=== PATIENT | male | born 1960 | race Caucasian/White ===

== ENCOUNTER 2023-09-01 20:00 | Emergency (ER) | payer OTHER ==
[~2023-09-01] VITALS: Ht 167.6 cm; Wt 86.2 kg
[2023-09-01] MEDS ORDERED: IBUP-1955 PO (21:30)
[2023-09-01 21:33] VITALS: BP 149/98; TEMP 208.4; O2SAT 100
== END 2023-09-01 21:34 | disposition home or self-care (01) ==
LOC: ER 20:34
DX: S86.911A Strain of unspecified muscle(s) and tendon(s) at lower leg level, right leg, initial encounter (principal); I10 Essential (primary) hypertension; X50.1XXA Overexertion from prolonged static or awkward postures, initial encounter; Y93.89 Activity, other specified; Y92.89 Other specified places as the place of occurrence of the external cause; Y99.8 Other external cause status
CPT/HCPCS: A4606; A4663

== ENCOUNTER 2024-03-23 18:59 | Emergency (ER) | payer OTHER ==
[~2024-03-23] VITALS: Ht 167.6 cm; Wt 90.7 kg
[~2024-03-23 18:59] MED LIST: IBUP-1955 PO
[2024-03-23] MEDS: IV NORMAL SALINE 1000 ML BAG IV ONE (19:30)
[2024-03-23 19:48] LABS: BASOPHILS # (AUTO) 0.1 K/UL (0.0-0.2); BASOPHILS % (AUTO) 0.6 % (0.0-2.0); EOSINOPHILS % (AUTO) 0.1 % (0.0-7.0); HEMOGLOBIN 18.7 g/dL (12.5-16.3); LYMPHOCYTES # (AUTO) 1.8 K/uL (0.8-4.8); LYMPHOCYTES % (AUTO) 18.2 % (20.5-51.5); MEAN CORPUSCULAR HEMOGLOBIN 30.8 uug (23.8-33.4); MEAN CORPUSCULAR HGB CONC 35 g/dL (32.5-36.3); MEAN CORPUSCULAR VOLUME 87.3 fL (73.0-96.2); MONOCYTES # (AUTO) 0.7 K/uL (0.1-1.30); MONOCYTES % (AUTO) 7.3 % (0.0-11.0); NEUTROPHILS # (AUTO) 7.2 K/uL (1.8-8.9); NEUTROPHILS % (AUTO) 73.8 % (38.5-71.5); PLATELET COUNT (AUTO) 247 K/uL (152-348); RED BLOOD CELL COUNT(AUTO) 6.06 MIL/uL (4.06-5.63); RED CELL DISTRIBUTION WIDTH 13.6 % (12.1-16.2); WHITE BLOOD COUNT (AUTO) 9.8 K/uL (3.6-10.2)
[2024-03-23 19:59] LABS: CALCIUM 9.6 mg/dL (8.5-10.1); CARBON DIOXIDE 27 mmol/L (21-32); CHLORIDE 102 mmol/L (98-107); CREATININE 1.3 mg/dL (0.6-1.3); GLUCOSE 135 mg/dL (74-106); SODIUM SERUM 139 mmol/L (136-145); UREA NITROGEN, BLOOD 15 mg/dL (7-18)
[2024-03-23 20:05] LABS: POTASSIUM 4.2 mmol/L (3.5-5.1)
[2024-03-23 20:07] LABS: DIFFERENTIAL COMMENT 1
[2024-03-23 20:11] LABS: ALANINE AMINOTRANSFERASE 39 U/L (16-63); ALBUMIN 4.3 g/dL (3.4-5.0); ALKALINE PHOSPHATASE 127 U/L (50-136); ASPARTATE AMINOTRANSFERASE 25 U/L (15-37); BILIRUBIN,DIRECT 0.2 mg/dL (0.0-0.2); BILIRUBIN,TOTAL 1.3 mg/dL (0.2-1.0); NT-PRO BNP 52 pg/mL (0-125); TOTAL PROTEIN, SERUM 9.1 g/dL (6.4-8.2)
[2024-03-23 22:47] VITALS: BP 156/87; TEMP 98.3; O2SAT 99
== END 2024-03-23 22:47 | disposition home or self-care (01) ==
LOC: ER 18:59
DX: D75.1 Secondary polycythemia (principal); R12 Heartburn
CPT/HCPCS: 99284; 96360; 71045; 84484 ×2; 80076; 80048; 83880; 85025; 85379; 85730; 36415; 82668; J7040; A4606; A4663

== ENCOUNTER 2024-06-08 09:02 | Emergency (ER) | payer OTHER ==
[~2024-06-08] VITALS: Ht 167.6 cm; Wt 77.1 kg
[~2024-06-08 09:02] MED LIST changes: +LORA-259 PO
[2024-06-08] MEDS: MAGNESIUM SULFATE 2 GM in IV DEXTROSE 5% 100 ML IV ONE (09:54)
[2024-06-08] MEDS ORDERED: MAGNESIUM SULFATE/D5W 200 ML ONE (09:54)
[2024-06-08 09:55] LABS: BASOPHILS % (AUTO) 0.3 % (0.0-2.0); EOSINOPHILS % (AUTO) 0.1 % (0.0-7.0); HEMATOCRIT 54.3 % (36.7-47.1); HEMOGLOBIN 19.4 g/dL (12.5-16.3); LYMPHOCYTES # (AUTO) 0.8 K/uL (0.8-4.8); LYMPHOCYTES % (AUTO) 7.5 % (20.5-51.5); MEAN CORPUSCULAR HEMOGLOBIN 31.3 uug (23.8-33.4); MEAN CORPUSCULAR HGB CONC 36 g/dL (32.5-36.3); MEAN CORPUSCULAR VOLUME 87.5 fL (73.0-96.2); MONOCYTES # (AUTO) 0.5 K/uL (0.1-1.30); MONOCYTES % (AUTO) 4.9 % (0.0-11.0); NEUTROPHILS # (AUTO) 9.4 K/uL (1.8-8.9); NEUTROPHILS % (AUTO) 87.2 % (38.5-71.5); PLATELET COUNT (AUTO) 294 K/uL (152-348); RED CELL DISTRIBUTION WIDTH 13.6 % (12.1-16.2); WHITE BLOOD COUNT (AUTO) 10.8 K/uL (3.6-10.2)
[2024-06-08 09:59] LABS: DIFFERENTIAL COMMENT 1
[2024-06-08 10:02] LABS: CALCIUM 10.1 mg/dL (8.5-10.1); CARBON DIOXIDE 26 mmol/L (21-32); CHLORIDE 105 mmol/L (98-107); CREATININE 1.4 mg/dL (0.6-1.3); GLUCOSE 173 mg/dL (74-106); POTASSIUM 4.1 mmol/L (3.5-5.1); SODIUM SERUM 144 mmol/L (136-145); UREA NITROGEN, BLOOD 25 mg/dL (7-18)
[2024-06-08 10:07] LABS: ALANINE AMINOTRANSFERASE 61 U/L (16-63); ALBUMIN 4.2 g/dL (3.4-5.0); ALKALINE PHOSPHATASE 125 U/L (50-136); ASPARTATE AMINOTRANSFERASE 33 U/L (15-37); BILIRUBIN,DIRECT 0.3 mg/dL (0.0-0.2); BILIRUBIN,TOTAL 0.9 mg/dL (0.2-1.0); TOTAL PROTEIN, SERUM 7.8 g/dL (6.4-8.2)
[2024-06-08] MEDS ORDERED: NEOMY/BACITRA/POLYMYXIN B OINT UD PACKET TP ONE (10:27)
[2024-06-08 10:34] LABS: THYROID STIMULATING HORMONE 4.017 mIU/mL (0.358-3.740)
[2024-06-08 11:27] LABS: *BILIRUBIN,URIN NEGATIVE (NEGATIVE); *BLOOD, URINE NEGATIVE (NEGATIVE); *CLARITY,URINE CLEAR (CLEAR); *COLOR,URINE YELLOW (YELLOW); *KETONES,URINE 2+ (NEGATIVE); *PROTEIN,URINE NEGATIVE (NEGATIVE); *UROBILINOGEN,URINE 0.2 E.U./dl (NORMAL); LEUKOCYTE ESTERASE ,URINE NEGATIVE (NEGATIVE); NITRITE, URINE NEGATIVE (NEGATIVE); PH,URINE 5.5 (5.0-8.0); UGLUCOSE NEGATIVE (NEGATIVE)
[2024-06-08 11:47] LABS: WBC,URINE 0-3 /HPF (0-3)
[2024-06-08 11:48] LABS: SQUAMOUS EPITHELIAL CELL,UR FEW /HPF (NONE SEEN)
[2024-06-08] MEDS: IV NORMAL SALINE 500 ML BAG IV ONE (13:38)
[2024-06-08] MEDS ORDERED: THYR30TA2 PO (14:29)
[2024-06-08 14:52] VITALS: BP 158/91; O2SAT 98
== END 2024-06-08 14:53 | disposition home or self-care (01) ==
LOC: ER 09:02
DX: D75.1 Secondary polycythemia (principal); E03.9 Hypothyroidism, unspecified; E88.810 Metabolic syndrome; R00.0 Tachycardia, unspecified; R00.2 Palpitations; R07.9 Chest pain, unspecified; K21.9 Gastro-esophageal reflux disease without esophagitis; Z79.890 Hormone replacement therapy
CPT/HCPCS: 99285; 96365; 71045; 96361; 80076; 80048; 81001; 82607; 83036; 84439; 84443; 85025; 85379; 85730; 84484 ×2; 36415; 93005; J3475 ×2; J7040 ×2; 70030-TC; A4606; A4663

== ENCOUNTER 2024-06-20 09:47 | Emergency (ER) | payer OTHER ==
[~2024-06-20] VITALS: Ht 167.6 cm; Wt 77.1 kg
[~2024-06-20 09:47] MED LIST changes: +THYR30TA2 PO
[2024-06-20 10:51] LABS: BASOPHILS % (AUTO) 0.2 % (0.0-2.0); HEMATOCRIT 47.3 % (36.7-47.1); HEMOGLOBIN 16.8 g/dL (12.5-16.3); LYMPHOCYTES # (AUTO) 0.5 K/uL (0.8-4.8); LYMPHOCYTES % (AUTO) 6.6 % (20.5-51.5); MEAN CORPUSCULAR HEMOGLOBIN 31.3 uug (23.8-33.4); MEAN CORPUSCULAR HGB CONC 35 g/dL (32.5-36.3); MEAN CORPUSCULAR VOLUME 88.5 fL (73.0-96.2); MONOCYTES # (AUTO) 0.3 K/uL (0.1-1.30); MONOCYTES % (AUTO) 3.3 % (0.0-11.0); NEUTROPHILS # (AUTO) 7.4 K/uL (1.8-8.9); NEUTROPHILS % (AUTO) 89.9 % (38.5-71.5); PLATELET COUNT (AUTO) 285 K/uL (152-348); RED BLOOD CELL COUNT(AUTO) 5.35 MIL/uL (4.06-5.63); RED CELL DISTRIBUTION WIDTH 13.5 % (12.1-16.2); RETICULOCYTE COUNT 1.4 % (0.4-2.2); WHITE BLOOD COUNT (AUTO) 8.2 K/uL (3.6-10.2)
[2024-06-20 11:00] LABS: CALCIUM 9.2 mg/dL (8.5-10.1); CREATININE 1.2 mg/dL (0.6-1.3)
[2024-06-20 11:13] LABS: DIFFERENTIAL COMMENT 1
[2024-06-20 12:58] VITALS: BP 144/82; TEMP 97.7; O2SAT 99
== END 2024-06-20 12:59 | disposition home or self-care (01) ==
LOC: ER 09:47
DX: R00.0 Tachycardia, unspecified (principal); I10 Essential (primary) hypertension; E88.810 Metabolic syndrome; D75.1 Secondary polycythemia; K21.9 Gastro-esophageal reflux disease without esophagitis; F41.9 Anxiety disorder, unspecified; Z79.890 Hormone replacement therapy
CPT/HCPCS: 99284; 80048; 85025; 85044; 36415; 93005; J7040; 70030-TC; A4606; A4663

== ENCOUNTER 2024-09-04 04:38 | Emergency (ER) | payer OTHER ==
[~2024-09-04] VITALS: Ht 167.6 cm; Wt 72.6 kg
[2024-09-04 05:12] LABS: PLATELET COUNT (AUTO) 255 K/uL (152-348); RED BLOOD CELL COUNT(AUTO) 5.25 MIL/uL (4.06-5.63); RED CELL DISTRIBUTION WIDTH 12.5 % (12.1-16.2); WHITE BLOOD COUNT (AUTO) 6.8 K/uL (3.6-10.2)
[2024-09-04] MEDS: IV NORMAL SALINE 1000 ML BAG IV ONE (05:16)
[2024-09-04] MEDS ORDERED: LORAZEPAM 2 MG/1 ML VIAL ONE (05:18)
[2024-09-04] MEDS ORDERED: LABETALOL HCL 100 MG/20 ML VIAL ONE (05:18)
[2024-09-04 05:22] LABS: CREATININE 1.3 mg/dL (0.6-1.3); SODIUM SERUM 144 mmol/L (136-145); UREA NITROGEN, BLOOD 20 mg/dL (7-18)
[2024-09-04] MEDS ORDERED: ASPI81TA31 PO (05:24)
[2024-09-04] MEDS ORDERED: AMLO-212 PO (05:24)
[2024-09-04] MEDS: LORAZEPAM 2 MG/1 ML VIAL IV ONE (05:27)
[2024-09-04 05:28] LABS: ASPARTATE AMINOTRANSFERASE 27 U/L (15-37); TOTAL PROTEIN, SERUM 7.6 g/dL (6.4-8.2)
[2024-09-04] MEDS: LABETALOL HCL 100 MG/20 ML VIAL IV ONE (05:28)
[2024-09-04 06:31] LABS: *BILIRUBIN,URIN NEGATIVE (NEGATIVE); *BLOOD, URINE NEGATIVE (NEGATIVE); *CLARITY,URINE CLEAR (CLEAR); *COLOR,URINE YELLOW (YELLOW); *KETONES,URINE NEGATIVE (NEGATIVE); *PROTEIN,URINE NEGATIVE (NEGATIVE); *UROBILINOGEN,URINE 0.2 E.U./dl (NORMAL); LEUKOCYTE ESTERASE ,URINE NEGATIVE (NEGATIVE); NITRITE, URINE NEGATIVE (NEGATIVE); UGLUCOSE NEGATIVE (NEGATIVE)
[2024-09-04 08:32] VITALS: BP 121/78; TEMP 97.6; O2SAT 98
== END 2024-09-04 08:32 | disposition home or self-care (01) ==
LOC: ER 04:49
DX: R00.2 Palpitations (principal); R00.0 Tachycardia, unspecified; R07.9 Chest pain, unspecified; Z79.82 Long term (current) use of aspirin; Z79.899 Other long term (current) drug therapy; K21.9 Gastro-esophageal reflux disease without esophagitis
CPT/HCPCS: 99285; 96374; 96361; 71045; 96375; 80076; 80048; 81003; 83880; 84443; 85025; 85379; 84484 ×2; 36415; 93005; J3490; J2060; J7040; A4606; A4663

== ENCOUNTER 2024-09-23 07:25 | Emergency (ER) | payer OTHER ==
[~2024-09-23] VITALS: Ht 170.2 cm; Wt 74.8 kg
[~2024-09-23 07:25] MED LIST changes: +AMLO-212 PO; +ASPI81TA31 PO; -IBUP-1955 PO
[2024-09-23 08:09] LABS: PLATELET COUNT (AUTO) 268 K/uL (152-348); RED BLOOD CELL COUNT(AUTO) 5.37 MIL/uL (4.06-5.63); RED CELL DISTRIBUTION WIDTH 12.6 % (12.1-16.2); WHITE BLOOD COUNT (AUTO) 6.0 K/uL (3.6-10.2)
[2024-09-23] MEDS ORDERED: MAGNESIUM SULFATE/D5W 200 ML ONE (08:09)
[2024-09-23] MEDS ORDERED: POTASSIUM BICARBONATE/CIT AC 25 MEQ TABLET.EFF ONE (08:14)
[2024-09-23] MEDS: MAGNESIUM SULFATE 2 GM in IV DEXTROSE 5% 100 ML IV ONE (08:15)
[2024-09-23 08:17] LABS: CREATININE 1.1 mg/dL (0.6-1.3); SODIUM SERUM 140 mmol/L (136-145); UREA NITROGEN, BLOOD 25 mg/dL (7-18)
[2024-09-23 10:21] VITALS: BP 140/89; O2SAT 99
== END 2024-09-23 10:42 | disposition home or self-care (01) ==
LOC: ER 07:25
DX: R00.0 Tachycardia, unspecified (principal); R07.9 Chest pain, unspecified; F41.9 Anxiety disorder, unspecified; I10 Essential (primary) hypertension; E03.9 Hypothyroidism, unspecified; E11.9 Type 2 diabetes mellitus without complications; K21.9 Gastro-esophageal reflux disease without esophagitis; Z79.82 Long term (current) use of aspirin; Z86.79 Personal history of other diseases of the circulatory system
CPT/HCPCS: 99285; 96365; 71045; 96366; 80048; 83735; 85025; 85379; 84484 ×2; 36415; 93005; J3475 ×2; A4606; A4663

== ENCOUNTER 2024-10-23 18:23 | Emergency (ER) | payer OTHER ==
[~2024-10-23] VITALS: Ht 170.2 cm; Wt 74.8 kg
[2024-10-23] MEDS: IV NORMAL SALINE 1000 ML BAG IV ONE ×2 (19:08→19:14)
[2024-10-23 19:14] LABS: PLATELET COUNT (AUTO) 265 K/uL (152-348); RED BLOOD CELL COUNT(AUTO) 5.54 MIL/uL (4.06-5.63); RED CELL DISTRIBUTION WIDTH 13.5 % (12.1-16.2); WHITE BLOOD COUNT (AUTO) 7.7 K/uL (3.6-10.2)
[2024-10-23 19:22] LABS: CREATININE 1.0 mg/dL (0.6-1.3); SODIUM SERUM 139 mmol/L (136-145); UREA NITROGEN, BLOOD 32 mg/dL (7-18)
[2024-10-23 19:28] LABS: ASPARTATE AMINOTRANSFERASE 21 U/L (15-37); TOTAL PROTEIN, SERUM 7.8 g/dL (6.4-8.2)
[2024-10-23] MEDS ORDERED: METO-356 PO (22:54)
[2024-10-23] MEDS: METOPROLOL SUCCINATE XL 25 MG TAB.SR.24H PO ONE (23:00)
[2024-10-23 23:36] VITALS: BP 124/75; TEMP 98
[2024-10-23 23:39] VITALS: BP 124/75; O2SAT 98
== END 2024-10-23 23:56 | disposition home or self-care (01) ==
LOC: ER 18:26
DX: R00.2 Palpitations (principal); R07.9 Chest pain, unspecified; K21.9 Gastro-esophageal reflux disease without esophagitis; Z79.82 Long term (current) use of aspirin
CPT/HCPCS: 99285; 96360; 71045; 80076; 80048; 83880; 83735; 85025; 85730; 84484 ×3; 36415; 93005; J7040 ×2; A4606; A4663

== ENCOUNTER 2024-11-18 09:27 | Emergency (ER) | payer OTHER ==
[~2024-11-18] VITALS: Ht 170.2 cm; Wt 70.3 kg
[~2024-11-18 09:27] MED LIST changes: +METO-356 PO
[2024-11-18 09:32] VITALS: BP 129/96
[2024-11-18] MEDS ORDERED: LORA-259 PO (11:00)
[2024-11-18 11:06] VITALS: BP 122/80; O2SAT 100
== END 2024-11-18 11:06 | disposition home or self-care (01) ==
LOC: ER 09:29
DX: F41.9 Anxiety disorder, unspecified (principal); R00.0 Tachycardia, unspecified; I51.9 Heart disease, unspecified; K21.9 Gastro-esophageal reflux disease without esophagitis; Z79.82 Long term (current) use of aspirin; Z79.890 Hormone replacement therapy; Z79.899 Other long term (current) drug therapy
CPT/HCPCS: 93005; A4606; A4663

== ENCOUNTER 2024-12-12 08:54 | Inpatient (IN) | payer OTHER ==
[~2024-12-12] VITALS: Ht 170.2 cm; Wt 72.6 kg
[2024-12-12 09:31] LABS: CREATININE 1.1 mg/dL (0.6-1.3); SODIUM SERUM 141 mmol/L (136-145); UREA NITROGEN, BLOOD 19 mg/dL (7-18)
[2024-12-12 09:32] LABS: PLATELET COUNT (AUTO) 286 K/uL (152-348); RED BLOOD CELL COUNT(AUTO) 6.37 MIL/uL (4.06-5.63); RED CELL DISTRIBUTION WIDTH 14.9 % (12.1-16.2); WHITE BLOOD COUNT (AUTO) 9.7 K/uL (3.6-10.2)
[2024-12-12 09:37] LABS: ASPARTATE AMINOTRANSFERASE 22 U/L (15-37); TOTAL PROTEIN, SERUM 9.0 g/dL (6.4-8.2)
[2024-12-12 09:45] LABS: *BILIRUBIN,URIN NEGATIVE (NEGATIVE); *BLOOD, URINE NEGATIVE (NEGATIVE); *CLARITY,URINE CLEAR (CLEAR); *COLOR,URINE YELLOW (YELLOW); *KETONES,URINE 2+ (NEGATIVE); *PROTEIN,URINE 1+ (NEGATIVE); *UROBILINOGEN,URINE 0.2 E.U./dl (NORMAL); LEUKOCYTE ESTERASE ,URINE NEGATIVE (NEGATIVE); NITRITE, URINE NEGATIVE (NEGATIVE); UGLUCOSE NEGATIVE (NEGATIVE)
[2024-12-12 09:46] LABS: URINE AMORPHOUS URATE FEW /HPF
[2024-12-12 10:10] LABS: LYMPHOCYTES % (MANUAL) 12 % (20-40); MONOCYTES % (MANUAL) 6 % (2-10); NEUTROPHILS % (MANUAL) 82 % (42-75)
[2024-12-12 10:11] LABS: PLATELET ESTIMATE ADEQUATE
[2024-12-12 11:00] VITALS: BP 129/89
[2024-12-12 11:40] VITALS: BP 142/94; TEMP 97.7; O2SAT 100
[2024-12-12] MEDS ORDERED: ACETAMINOPHEN 325 MG TABLET PO PRN (13:00)
[2024-12-12] MEDS ORDERED: MAGNESIUM HYDROXIDE 30 ML LIQUID UDC PO PRN (13:00)
[2024-12-12] MEDS ORDERED: REMEDY ESSENTIAL ZINC PASTE 113 GM TP PRN (13:00)
[2024-12-12] MEDS ORDERED: ZOLPIDEM 5 MG TABLET PO PRN (13:00)
[2024-12-12] MEDS ORDERED: ASPIRIN 81 MG TAB.CHEW GT SCH (13:00)
[2024-12-12] MEDS ORDERED: ONDANSETRON 4 MG/2 ML VIAL IV PRN (13:00)
[2024-12-12] MEDS ORDERED: CHOL10005 PO (15:01)
[2024-12-12] MEDS ORDERED: MULT-1119 PO (15:01)
[2024-12-12] MEDS ORDERED: OMEG1CAP74 PO (15:02)
[2024-12-12] MEDS ORDERED: ASCO500C18 PO (15:02)
[2024-12-12] MEDS ORDERED: OMEP20TA5 PO (15:03)
[2024-12-12 16:31] VITALS: BP 106/64; TEMP 97.7; O2SAT 99
[2024-12-12] MEDS: OMEGA-3 FATTY ACIDS/FISH OIL CAPSULE PO SCH (16:48)
[2024-12-12] MEDS ORDERED: Medication Not On Formulary EA (Omega-3 Fatty Acids/Fish Oil (Fish Oil 1,000 Mg Softgel) PO SCH (17:00)
[2024-12-12] MEDS ORDERED: LORAZEPAM 1 MG TABLET PO SCH (17:00)
[2024-12-12 19:50] VITALS: BP 121/85; TEMP 98; O2SAT 99
[2024-12-12] MEDS: ENOXAPARIN SODIUM 40 MG/0.4 ML DISP.SYRIN SQ SCH (20:23)
[2024-12-13 00:28] VITALS: BP 110/70; TEMP 98; O2SAT 100
[2024-12-13 05:01] VITALS: BP 111/67; TEMP 97.5; O2SAT 100
[2024-12-13] MEDS: PANTOPRAZOLE SODIUM 40 MG TABLET.DR PO SCH (06:30)
[2024-12-13] MEDS: THYROID 60 MG TABLET PO SCH (06:30)
[2024-12-13 06:58] LABS: PLATELET COUNT (AUTO) 245 K/uL (152-348); RED BLOOD CELL COUNT(AUTO) 5.98 MIL/uL (4.06-5.63); RED CELL DISTRIBUTION WIDTH 14.6 % (12.1-16.2); WHITE BLOOD COUNT (AUTO) 6.5 K/uL (3.6-10.2)
[2024-12-13 07:09] LABS: CREATININE 1.1 mg/dL (0.6-1.3); SODIUM SERUM 140.0 mmol/L (136-145); UREA NITROGEN, BLOOD 25.0 mg/dL (7-18)
[2024-12-13 08:00] VITALS: BP 110/71; TEMP 98.1; O2SAT 96
[2024-12-13] MEDS ORDERED: ASPIRIN 81 MG TAB.CHEW PO SCH ×2 (09:00)
[2024-12-13] MEDS ORDERED: AMLODIPINE 5 MG TABLET PO SCH (09:00)
[2024-12-13] MEDS ORDERED: Medication Not On Formulary EA (Thyroid (Armour Thyroid) 1 TAB) PO SCH (09:00)
[2024-12-13] MEDS ORDERED: METOPROLOL SUCCINATE XL 25 MG TAB.SR.24H PO SCH ×2 (09:00)
[2024-12-13] MEDS: ASPIRIN 81 MG TAB.CHEW PO SCH (09:01)
[2024-12-13] MEDS: ASCORBIC ACID 500 MG TABLET PO SCH (09:02)
[2024-12-13] MEDS: CHOLECALCIFEROL 1,000 UNIT TABLET PO SCH (09:02)
[2024-12-13] MEDS: MULTIVITAMINS,THERAPEUTIC TABLET PO SCH (09:02)
[2024-12-13] MEDS: METOPROLOL TARTRATE 50 MG TABLET PO SCH (09:05)
[2024-12-13 12:00] VITALS: BP 111/68; TEMP 98.5; O2SAT 99
[2024-12-13 17:00] VITALS: BP 103/65; TEMP 97.6; O2SAT 98
[2024-12-13 19:15] VITALS: BP 118/60; TEMP 98.2; O2SAT 98
[2024-12-14 00:03] VITALS: BP 117/73; TEMP 98.4; O2SAT 98
[2024-12-14 04:40] VITALS: BP 109/64; TEMP 98.3; O2SAT 95
[2024-12-14 07:12] LABS: PLATELET COUNT (AUTO) 260 K/uL (152-348); RED BLOOD CELL COUNT(AUTO) 5.35 MIL/uL (4.06-5.63); RED CELL DISTRIBUTION WIDTH 14.7 % (12.1-16.2); WHITE BLOOD COUNT (AUTO) 8.9 K/uL (3.6-10.2)
[2024-12-14 07:46] LABS: CREATININE 1.2 mg/dL (0.6-1.3); SODIUM SERUM 141.0 mmol/L (136-145); UREA NITROGEN, BLOOD 26.0 mg/dL (7-18)
[2024-12-14 11:59] VITALS: BP 105/64; TEMP 98.2; O2SAT 99
[2024-12-14] MEDS ORDERED: METO50TA16 PO (14:05)
[2024-12-14 15:00] VITALS: BP 107/60; TEMP 98.3; O2SAT 99
== END 2024-12-14 15:48 | disposition home or self-care (01) | DRG 310 ==
LOC: ER 08:54 → TELE3 11:42 → MEDSURG3 12-14 13:15
PROVIDERS: ADMIT Student in an Organized Health Care Education/Training Program; ATTEND Student in an Organized Health Care Education/Training Program
DX: R00.2 Palpitations (principal); D75.1 Secondary polycythemia; E86.0 Dehydration; E03.9 Hypothyroidism, unspecified; E11.9 Type 2 diabetes mellitus without complications; I11.9 Hypertensive heart disease without heart failure; F41.9 Anxiety disorder, unspecified; Z79.899 Other long term (current) drug therapy; Z79.890 Hormone replacement therapy; K21.9 Gastro-esophageal reflux disease without esophagitis; R00.0 Tachycardia, unspecified
CPT/HCPCS: 36415; 70030-TC; 71045; 83605; 83735; 84100; 84443; 84480; 84484; 85025; 85730; 87040; 87086; 93307; A4606; A4663; G0378; J1650

== ENCOUNTER 2024-12-18 10:03 | Emergency (ER) | payer OTHER ==
[~2024-12-18] VITALS: Ht 170.2 cm; Wt 72.6 kg
[~2024-12-18 10:03] MED LIST changes: -AMLO-212 PO; +ASCO500C18 PO; +CHOL10005 PO; -LORA-259 PO; -METO-356 PO; +METO50TA16 PO; +MULT-1119 PO; +OMEG1CAP74 PO; +OMEP20TA5 PO
[2024-12-18 10:09] VITALS: BP 135/72
[2024-12-18 11:02] LABS: PLATELET COUNT (AUTO) 258 K/uL (152-348); RED BLOOD CELL COUNT(AUTO) 5.80 MIL/uL (4.06-5.63); RED CELL DISTRIBUTION WIDTH 14.8 % (12.1-16.2); WHITE BLOOD COUNT (AUTO) 7.9 K/uL (3.6-10.2)
[2024-12-18 11:10] LABS: CREATININE 1.1 mg/dL (0.6-1.3); SODIUM SERUM 143.0 mmol/L (136-145); UREA NITROGEN, BLOOD 22.0 mg/dL (7-18)
[2024-12-18] MEDS ORDERED: LORA-259 PO (11:53)
[2024-12-18 12:37] VITALS: BP 132/75; O2SAT 100
== END 2024-12-18 12:25 | disposition home or self-care (01) ==
LOC: ER 10:03
DX: F41.9 Anxiety disorder, unspecified (principal); D75.1 Secondary polycythemia; R07.2 Precordial pain; I51.9 Heart disease, unspecified; E11.9 Type 2 diabetes mellitus without complications; Z79.82 Long term (current) use of aspirin; Z79.890 Hormone replacement therapy; Z79.899 Other long term (current) drug therapy
CPT/HCPCS: 36415; 84443; 85025; 93005; A4606; A4663

== ENCOUNTER 2025-01-01 12:40 | Emergency (ER) | payer OTHER ==
[~2025-01-01] VITALS: Ht 170.2 cm; Wt 72.6 kg
[~2025-01-01 12:40] MED LIST changes: +LORA-259 PO
[2025-01-01] MEDS ORDERED: LORAZEPAM 0.5 MG TABLET ONE (13:04)
[2025-01-01] MEDS: IV NORMAL SALINE 500 ML BAG IV ONE (13:11)
[2025-01-01] MEDS: LORAZEPAM 0.5 MG TABLET PO ONE (13:12)
[2025-01-01 13:18] LABS: PLATELET COUNT (AUTO) 289 K/uL (152-348); RED BLOOD CELL COUNT(AUTO) 5.55 MIL/uL (4.06-5.63); RED CELL DISTRIBUTION WIDTH 14.8 % (12.1-16.2); WHITE BLOOD COUNT (AUTO) 8.3 K/uL (3.6-10.2)
[2025-01-01 13:29] LABS: CREATININE 1.1 mg/dL (0.6-1.3); SODIUM SERUM 143 mmol/L (136-145); UREA NITROGEN, BLOOD 24 mg/dL (7-18)
[2025-01-01 13:34] LABS: ASPARTATE AMINOTRANSFERASE 26 U/L (15-37); TOTAL PROTEIN, SERUM 7.7 g/dL (6.4-8.2)
[2025-01-01] MEDS ORDERED: MAGN400T40 PO (14:00)
[2025-01-01 17:49] VITALS: BP 119/67
[2025-01-01] MEDS ORDERED: LORA-259 PO (18:41)
[2025-01-01 19:08] VITALS: BP 123/72; O2SAT 98
== END 2025-01-01 19:08 | disposition home or self-care (01) ==
LOC: ER 12:40
DX: R07.89 Other chest pain (principal); I11.9 Hypertensive heart disease without heart failure; E11.9 Type 2 diabetes mellitus without complications; E03.9 Hypothyroidism, unspecified; F41.9 Anxiety disorder, unspecified; R06.02 Shortness of breath; Z79.82 Long term (current) use of aspirin; Z79.890 Hormone replacement therapy; Z79.899 Other long term (current) drug therapy
CPT/HCPCS: 36415; 71045; 84484; 85025; 85730; A4606; A4663; J7040